=== PATIENT | male | born 1980 | race Two or more races ===

== ENCOUNTER 2020-07-16 20:28 | Emergency (ER) | payer OTHER ==
[~2020-07-16] VITALS: Ht 177.8 cm; Wt 143.8 kg
[2020-07-16] MEDS ORDERED: ADULT ASPIRIN R81 MG PO (20:52)
[2020-07-16] MEDS ORDERED: ENTRESTO 24 MG1 EACH (20:52)
[2020-07-16] MEDS ORDERED: ALDACTONE25 MG PO (20:52)
[2020-07-16] MEDS ORDERED: GLUMETZA500 MG PO (20:52)
[2020-07-16] MEDS ORDERED: ATORVASTATIN CA80 MG PO (20:53)
[2020-07-16] MEDS ORDERED: BRILINTA90 MG PO (20:53)
[2020-07-16] MEDS ORDERED: ULTRACET PO (22:30)
== END 2020-07-16 22:57 | disposition home or self-care (01) ==
LOC: ER 20:28
DX: S80.02XA Contusion of left knee, initial encounter (principal); W18.09XA Striking against other object with subsequent fall, initial encounter; Y93.89 Activity, other specified; Y92.59 Other trade areas as the place of occurrence of the external cause; Y99.8 Other external cause status